=== PATIENT | female | born 1965 | race Caucasian/White ===

== ENCOUNTER 2017-10-25 11:11 | Inpatient (IN) | payer OTHER ==
[~2017-10-25] VITALS: Ht 157.5 cm; Wt 101.3 kg
[2017-10-25 11:53] LABS: BASOPHIL % 0.4 % (0-2); RED CELL DISTRIBUTION WIDTH 13.8 % (11.5-14.5)
[2017-10-25 11:55] LABS: PLATELET COUNT 424 x10^3mcL (130-400)
[2017-10-25 12:07] LABS: CALCIUM 9.1 mg/dL (8.5-10.1); CARBON DIOXIDE 21.9 mmol/L (21-32); CHLORIDE SERUM 105 mmol/L (98-107); CREATININE SERUM 0.8 mg/dL (0.6-1.0); GFR1 > 60 mL/min; GLUCOSE SERUM 101 mg/dL (74-106); POTASSIUM SERUM 3.9 mmol/L (3.5-5.1); SODIUM SERUM 139 mmol/L (136-145)
[2017-10-25 12:12] LABS: ALBUMIN 4.2 g/dL (3.4-5.0); ALKALINE PHOSPHATASE 88 U/L (46-116); ALT/SGPT 49 U/L (14-59); AST/SGOT 24 U/L (15-37); BILIRUBIN TOTAL 0.67 mg/dL (0.20-1.00); TOTAL PROTEIN, SERUM 7.6 g/dL (6.4-8.2)
[2017-10-25] MEDS ORDERED: CELEBREX200 MG PO (13:26)
[2017-10-25] MEDS ORDERED: XANAX XR1 M1 PO (13:27)
[2017-10-25 15:13] VITALS: BP 129/85
[2017-10-25 15:26] LABS: T3 TOTAL 1.19 ng/mL
[2017-10-25 15:57] LABS: CHOLESTEROL/HDL RATIO 3.6; PHOSPHOROUS 3.2 mg/dL (2.5-4.9)
[2017-10-25 16:55] LABS: FREE T4 0.93 ng/dL (0.76-1.46); FREE THYROXINE INDEX 2.3 ug/dL (1.4-4.5); T4(THYROXINE) 7.1 ug/dL (4.7-13.3)
[2017-10-25 17:12] VITALS: BP 128/76
[2017-10-25 20:43] VITALS: BP 124/84
[2017-10-26 03:41] LABS: BASOPHIL % 0.1 % (0-2); PLATELET COUNT 289 x10^3mcL (130-400); RED CELL DISTRIBUTION WIDTH 13.9 % (11.5-14.5)
[2017-10-26 05:45] VITALS: BP 115/73
[2017-10-26 05:52] LABS: CARBON DIOXIDE 20.5 mmol/L (21-32); CHLORIDE SERUM 110 mmol/L (98-107); GLUCOSE SERUM 89 mg/dL (74-106); POTASSIUM SERUM 3.3 mmol/L (3.5-5.1); SODIUM SERUM 143 mmol/L (136-145)
[2017-10-26 05:53] LABS: CALCIUM 8.2 mg/dL (8.5-10.1); CREATININE SERUM 0.7 mg/dL (0.6-1.0); GFR1 > 60 mL/min; MAGNESIUM 1.9 mg/dL (1.8-2.4); PHOSPHOROUS 3.7 mg/dL (2.5-4.9)
[2017-10-26 07:06] LABS: microscopic required? NO
[2017-10-26 07:51] LABS: urine erythrocyte NEGATIVE (NEGATIVE)
[2017-10-26 09:10] LABS: AMPHETAMINE QUAL UR NONE DETECTED (NEG <=1000)
[2017-10-26] MEDS ORDERED: LIPI10 PO (09:53)
[2017-10-26 10:28] VITALS: BP 115/73
[2017-10-26 10:47] VITALS: BP 120/81
== END 2017-10-26 11:44 | disposition home or self-care (01) | DRG 392 ==
LOC: ED 11:11 → DU 14:21
PROVIDERS: Emergency Medicine; Family Medicine
DX: K21.9 Gastro-esophageal reflux disease without esophagitis (principal); Z68.41 Body mass index [BMI] 40.0-44.9, adult; E78.5 Hyperlipidemia, unspecified; M51.37 Other intervertebral disc degeneration, lumbosacral region; M89.48 Other hypertrophic osteoarthropathy, other site; E87.6 Hypokalemia; E66.01 Morbid (severe) obesity due to excess calories; Z90.49 Acquired absence of other specified parts of digestive tract; Z79.899 Other long term (current) drug therapy
CPT/HCPCS: 83880; 84439; 85378; 87046; 87046-59; J3010; J7030; Q0092; Q9967